=== PATIENT | female | born 1950 | race African-American/Black ===

== ENCOUNTER 2016-12-04 10:09 | Emergency (ER) | payer MEDICAID ==
[~2016-12-04] VITALS: Ht 167.6 cm; Wt 90.0 kg
[2016-12-04] MEDS ORDERED: METF500T4 PO (10:13)
[2016-12-04] MEDS ORDERED: ONDANSETRON HCL 4MG/2ML VIAL IV STA (10:27)
[2016-12-04] MEDS ORDERED: KETOROLAC 30MG/ML VIAL IV STA (10:27)
[2016-12-04 10:48] LABS: BASOPHILS % 1.1 % (0.0-2.0); EOSINOPHILS % 0.5 % (0.0-5.0); HEMATOCRIT. 40.7 % (36.0-48.0); HEMOGLOBIN. 13.7 g/dL (12.0-16.0); LYMPHOCYTES % 19.5 % (20.0-50.0); MEAN CORPUSCULAR VOLUME 86.3 fL (81.0-99.0); MEAN PLATELET VOLUME 10.8 fl (7.4-10.4); MONOCYTES % 11.1 % (2.0-8.0); NEUTROPHILS % 67.8 % (40.0-76.0); PLATELET 106 x1000/uL (130-400); RED BLOOD CELL COUNT 4.72 mill/uL (4.2-5.4); RED CELL DISTRIBUTION WIDTH 16.2 % (11.6-14.6)
[2016-12-04 11:02] LABS: CARBON DIOXIDE 26 mEq/L (21-32); CHLORIDE 100 mEq/L (98-107)
[2016-12-04 11:30] LABS: PROTHROMBIN TIME 10.9 sec
[2016-12-04 12:17] LABS: CLARITY URINE CLOUDY (CLEAR); COLOR URINE YELLOW (YELLOW); GLUCOSE URINE NEGATIVE (NEGATIVE); KETONES URINE NEGATIVE (NEGATIVE); LEUKOCYTE ESTERASE URINE NEGATIVE (NEGATIVE); NITRITE URINE POSITIVE (NEGATIVE); OCCULT BLOOD URINE TRACE (NEGATIVE); PH URINE 5.5 (4.5-8.0); PROTEIN URINE NEGATIVE (NEGATIVE); SPECIFIC GRAVITY URINE 1.014 (1.005-1.030); UROBILINOGEN URINE 0.2 E.U./dL (0.2-1.0)
[2016-12-04] MEDS ORDERED: OXYCODONE HCL/ACETAMINOPHEN 5/325MG TABLET PO ONE (12:45)
[2016-12-04] MEDS ORDERED: LEVOFLOXACIN 750MG PREMIX 150 ML IV ONE (12:45)
[2016-12-04] MEDS ORDERED: KETOROLAC 30MG/ML VIAL IV ONE (13:15)
[2016-12-04 15:05] VITALS: BP 125/75
== END 2016-12-04 15:44 | disposition home or self-care (01) ==
LOC: ER 10:32
DX: N39.0 Urinary tract infection, site not specified (principal); R10.12 Left upper quadrant pain; E11.65 Type 2 diabetes mellitus with hyperglycemia; K57.30 Diverticulosis of large intestine without perforation or abscess without bleeding; Z88.0 Allergy status to penicillin
CPT/HCPCS: 36415; 74176; 80053; 81001; 83690; 85025; 85610; 96365; 96366; 96375; 96376; 99285; J1885; J1956; J2405